=== PATIENT | male | born 1950 | race Caucasian/White ===

== ENCOUNTER → 2019-03-30 | Outpatient (CLI) | payer MEDICARE, BC | LOC: M.RAD 16:02 | DX: M51.35 Other intervertebral disc degeneration, thoracolumbar region (principal); G89.29 Other chronic pain ==

== ENCOUNTER → 2020-04-04 | Outpatient (CLI) | payer MEDICARE, BC | LOC: M.RAD 11:08 | PROVIDERS: ATTEND Internal Medicine | DX: M48.13 Ankylosing hyperostosis [Forestier], cervicothoracic region (principal); M47.816 Spondylosis without myelopathy or radiculopathy, lumbar region; M54.6 Pain in thoracic spine ==